=== PATIENT | male | born 1990 | race African-American/Black ===

== ENCOUNTER 2019-06-28 16:48 | Observation (INO) ==
[2019-06-28] MEDS ORDERED: NS 1,000 ML IV ONE ×2 (16:57→19:54)
[2019-06-28] MEDS ORDERED: ZOFRAN IV ONE (16:57)
--- NOTE | 2019-06-28 17:30 | PROVIDER DOCUMENTATION ---
This chart was entered by Tiffany Jacques Scribe, acting as scribe for Lori Huang CRNP. HPI-General Adult - General Chief Complaint: N/V/D Stated Complaint: N/V/D Time Seen by Provider: 06/28/19 16:51 Source: patient Allergies/Adverse Reactions: Patient Allergies Allergy/AdvReac Type Severity Reaction Status Date / Time No Known Allergies Allergy Verified 04/19/18 09:03 Home Medications: Home Medication List Medication Instructions Recorded Confirmed Last Taken Type Glipizide [Glipizide Xl] 2.5 mg PO BID 04/19/18 06/28/19 06/28/19 History Sitagliptin Phos/Metformin HCl 1 tab PO BID 06/28/19 06/28/19 06/27/19 History [Janumet 50-1,000 mg Tablet] - History of Present Illness -Gen Adult Nature of Presenting Problems: 29 y/o male presents to ED with N/V/D onset at 0600 this morning. Pt reports he has type II diabetes. Pt is alert and oriented. Location of Pain/Injury: reports: none Pain Radiation: reports: no radiation Quality of Pain: reports: none Severity: reports: mild Onset/Duration: reports: this morning Timing: reports: still present Context/Activities at Onset: reports: none Modifying Factors: improves with: nothing Associated Symptoms: reports: diarrhea, nausea, vomiting Similar Symptoms Previously?: No Recently seen or treated by another doctor?: No Review of Systems - Adult - REVIEW OF SYSTEMS - ADULT Constitutional: denies: chills, fever Eyes: reports: no symptoms reported Ears, Nose, Mouth & Throat: reports: no symptoms reported Cardiovascular: reports: no symptoms reported Respiratory: reports: no symptoms reported Gastrointestinal: reports: diarrhea, nausea, vomiting. denies: abdominal pain Genitourinary: reports: no symptoms reported Musculoskeletal: reports: no symptoms reported Integumentary: reports: no symptoms reported Neurological: reports: no symptoms reported Psychiatric: reports: no symptoms reported Endocrine: reports: no symptoms reported Hematologic/Lymphatic: reports: no symptoms reported Allergic/Immunologic: reports: no symptoms reported All Other Systems: Reviewed and Negative Past History - Adult - PAST MEDICAL HISTORY-ADULT Review of Records: reports: Old Records Reviewed, Nursing Assessment Review, Medications Reviewed Major Childhood Illnesses: reports: denies history Cardiovascular: reports: denies history Respiratory: reports: denies history Gastrointestinal: reports: denies history Obstetrical/Gynecological: reports: denies history Genitourinary: reports: denies history Musculoskeletal: reports: denies history Neurological: reports: denies history Endocrine/Immune: reports: Diabetes Diabetes Type: Type 2 Other Conditions: reports: denies history - PRIOR SURGERIES/PROCEDURES Surgical/Procedure History: reports: hernia repair - PRIOR HOSPITALIZATIONS Prior Hospitalizations: reports: none - IMMUNIZATION STATUS Childhood Immunizations: See Nurse Assessment Flu Vaccine: See Nurse Assessment - FAMILY HISTORY Family History: reviewed, not pertinent - SOCIAL HISTORY Smoking: non-smoker Substance Use: marijuana Alcohol Use Frequency: never Living Situation: family Physical Exam-General - PHYSICAL EXAM-ADULT Initial Vital Signs Reviewed: Yes - CONSTITUTIONAL General Appearance: appears well, alert, no apparent distress - EYES Eyes: PERRL/EOMI, pink conjunctivae - HEAD, EARS, NOSE, MOUTH & THROAT HENMT: normocephalic/atraumatic, moist mucous membranes, normal ENT inspection - NECK Neck: non-tender, full range of motion - RESPIRATORY Respiratory: chest non-tender, lungs clear, normal breath sounds - CARDIOVASCULAR Cardiovascular: normal peripheral pulses, regular rate, rhythm - GASTROINTESTINAL (ABDOMEN) Abdominal Exam: normal bowel sounds, non tender, soft - MUSCULOSKELETAL Back Exam: normal inspection, no CVA tenderness, no vertebral tenderness Extremity: normal range of motion, non-tender - SKIN Integumentary: normal color, warm/dry - NEUROLOGIC Neurologic: grossly normal - PSYCHIATRIC Psych/Mental Status: normal mood/affect, normal thought content, normal thought process, oriented x 3 Progress - PLAN OF CARE/RESULTS Progress/Plan/Lab Results: Vital Signs - 8 hr 06/28/19 16:51 Temperature 99.0 F Pulse Rate 120 H Respiratory Rate 18 Blood Pressure 109/64 O2 Sat by Pulse Oximetry 96 Laboratory Results - last 24 hr 06/28/19 16:57 POC Glucose 155 H Orders Category Date Time Status Saline Loc NOW Care 06/28/19 16:57 Active FLAT/UPRIGHT ABD/1 VIEW CHEST [RAD] Stat Exams 06/28/19 16:57 Ordered ACETONE SERUM [CHEM] Stat Lab 06/28/19 16:57 Uncollected CBC WITH ELECTRONIC DIFF [HEME] Stat Lab 06/28/19 16:57 Uncollected COMPREHENSIVE METABOLIC PANEL [CHEM] Stat Lab 06/28/19 16:57 Uncollected LIPASE [CHEM] Stat Lab 06/28/19 16:[address] W/POSS RFLX CULT [URINALYSIS] Stat Lab 06/28/19 16:57 Uncollected 0.9% Sodium Chloride Inj [Ns] 1,000 ml Med 06/28/19 16:57 Active IV 999 mls/hr Ondansetron [Zofran] Med 06/28/19 16:57 Discontinued 4 mg IV NOW ONE Laboratory Tests 06/28/19 06/28/19 06/28/19 16:57 17:30 17:30 WBC 9.82 RBC 5.08 Hgb 14.3 Hct 44.0 MCV 86.6 MCH 28.1 MCHC 32.5 L RDW Std Deviation 13.4 Plt Count 229 MPV 10.8 H Immature Gran % (Auto) 0.5 Neut % (Auto) 74.3 Lymph % (Auto) 16.5 L [place] % (Auto) 8.6 Eos % (Auto) 0.0 Baso % (Auto) 0.1 Immature Gran # (Auto) 0.05 H Neut # (Auto) 7.30 H Lymph # (Auto) 1.62 [place] # (Auto) 0.84 H Eos # (Auto) 0.00 Baso # (Auto) 0.01 Specimen Type Sample Site pH pCO2 pO2 HCO3 Base Excess Oxyhemoglobin ABG O2 Sat (Calculated) ABG O2 Saturation ABG Carboxyhemoglobin ABG Methemoglobin Sal Test A-a O2 Difference Total Hemoglobin Lactate Blood Gas Modality FiO2 % Sodium 138 Potassium 3.8 Chloride 106 Carbon Dioxide 20 L Anion Gap 12 BUN 13 Creatinine 1.2 Estimated GFR/1.73 m2 > 60 BUN/Creatinine Ratio 11 Glucose 152 H POC Glucose 155 H Calculated Osmolality 279 Calcium 8.9 Total Bilirubin 0.60 AST 45 H ALT 52 H Alkaline Phosphatase 61 Total Protein 6.7 Albumin 3.9 Globulin 3.0 Albumin/Globulin Ratio 1.0 Lipase 21 Urine Source Urine Color Urine Clarity Urine pH Ur Specific [place] Urine Protein Urine Ketones Urine Blood Urine Nitrite Urine Bilirubin Urine Urobilinogen Urine Microscopic RBC Urine WBC Ur Epithelial Cells Urine Crystals Urine Bacteria Urine Casts Urine Yeast Urine Glucose Acetone Level SMALL A 06/28/19 06/28/19 17:38 18:28 WBC RBC Hgb Hct MCV MCH MCHC RDW Std Deviation Plt Count MPV Immature Gran % (Auto) Neut % (Auto) Lymph % (Auto) [place] % (Auto) Eos % (Auto) Baso % (Auto) Immature Gran # (Auto) Neut # (Auto) Lymph # (Auto) [place] # (Auto) Eos # (Auto) Baso # (Auto) Specimen Type ARTERIAL Sample Site L RADIAL pH 7.41 pCO2 35 pO2 66 HCO3 23.4 Base Excess -1.8 Oxyhemoglobin 92.6 L ABG O2 Sat (Calculated) 18.7 ABG O2 Saturation 96.4 ABG Carboxyhemoglobin 2.60 H ABG Methemoglobin 1.3 Sal Test YES A-a O2 Difference 40.0 Total Hemoglobin 14.4 Lactate 0.80 Blood Gas Modality ROOM AIR FiO2 % 21.0 Sodium Potassium Chloride Carbon Dioxide Anion Gap BUN Creatinine Estimated GFR/1.73 m2 BUN/Creatinine Ratio Glucose POC Glucose Calculated Osmolality Calcium Total Bilirubin AST ALT Alkaline Phosphatase Total Protein Albumin Globulin Albumin/Globulin Ratio Lipase Urine Source CLEAN CATCH Urine Color YELLOW Urine Clarity CLEAR Urine pH 5.0 Ur Specific [place] 1.015 Urine Protein NEGATIVE Urine Ketones 3+(Large) A Urine Blood NEGATIVE Urine Nitrite NEGATIVE Urine Bilirubin NEGATIVE Urine Urobilinogen NORMAL Urine Microscopic RBC <10 Urine WBC NEGATIVE Ur Epithelial Cells <10 Urine Crystals URIC ACID PRESENT Urine Bacteria 1+ Urine Casts NONE SEEN Urine Yeast NONE SEEN Urine Glucose NEGATIVE Acetone Level Discussed results and plan of care with patient. Patient agrees with plan and verbalizes understanding. Result Diagrams: 06/28/19 17:30 06/28/19 17:30 - XRAY 1 XRAY Study: Abdomen ([facility] - [address] [facility] [address] [address] [facility] - [address] [place] [address] Department of Imaging Patient: MICHELLE ACEVEDOADM Date: 06/28/19MR#: [id number] : 1990ADM Status: REG ERAt#: [id number] Age/Sex: 29/MRoom/Bed: Loc: P.ED Ordering Physician: Lori Huang Family Physician: Jason Brito MD Reason for Procedure: abd pain Signed EXAM: FLAT/UPRIGHT ABD/1 VIEW CHEST HISTORY: abd pain TECHNIQUE: Flat and upright with chest, four views COMPARISON: 12/18/2017 FINDINGS: The lungs are well expanded. No cardiomegaly. No pneumonia. There are calcified right hilar mediastinal nodes. No free air beneath the diaphragm. No bowel obstruction. No organomegaly. There are scattered pelvic phleboliths. No foreign body. IMPRESSION: No acute abnormality. Electronically signed by Aleks Johnson 06/28/2019 6:06 PM 06/28/191805 Interpreting Physician: Aleks Johnson MD Dictated Date/Time: 06/28/191804 cc: Lori Huang; Jason Brito MD) Impression: See EMR Report XRAY Interpretation: See note - CONSULTS/PCP/HOSPITALIST Notification #1 *Consult/PCP/Hospitalist*: Dr. Olsen Time Discussed: 19:51 Reason/Comments: Admission Consult Disposition: Admit (admit for obs and do acucheck q4h, NS @150/hr, hu malog sliding scale, A1c, and lipids in the am.) Departure - Departure Date of Disposition Decision: 06/28/19 Time of Disposition Decision: 19:01 DIAGNOSIS: Hyperglycemia Nausea & vomiting Qualifiers: Vomiting type: unspecified Vomiting Intractability: non-intractable Qualified Code(s): R11.2 - Nausea with vomiting, unspecified Disposition: ADMITTED INPATIENT 09 Certified Medical Emergency: Emergent Condition: Stable Referrals and Follow-Ups: Jason Brito MD [Primary Care Provider] - - Critical Care Note This patient required my direct & personal management of CC.: No Attestation - Physician/ LINDA Attestation Patient care was provided by Advanced Practice Provider:: Yes Advanced Practice Provider:: Lori Huang Advanced Practice Provider documentation review:: The Mid-level provider documentation, treatment plan and medical decision making was reviewed by the physician who agrees with all treatment and medical decision making by the [facility]. The physician spent face to face time with patient:: No Advanced Practice Provider documentation review:: Supervising physician onsite and consulted in the evaluation and care of this patient. The physician did not have a face to face encounter with the patient. This chart was documented by the indicated scribe, (Tiffany Jacques, Sarita) and accurately reflects the services I performed and decisions made by me, Lori Huang CRNP, as attested by the provider's signature.
[2019-06-28 17:48] LABS: BASO# 0.01 X1000 (0.0-0.2); BASO% 0.1 % (0.0-0.8); HEMOGLOBIN 14.3 g/dL (14.0-18.0); IMM GRAN# 0.05 X1000 (0.0-0.04); IMM GRAN% 0.5 % (0.0-0.5); LYMPH# 1.62 X1000 (1.2-3.4); LYMPH% 16.5 % (20.5-51.1); MCH 28.1 PG (27-31); MCHC 32.5 g/dL (33-37); MCV 86.6 FL (81-99); MONO# 0.84 X1000 (0.11-0.59); MONO% 8.6 % (1.7-9.3); MPV 10.8 FL (7.4-10.4); NEUT% 74.3 % (42.2-75.2); PLT 229 X1000 (130-400); RBC 5.08 XMIL (4.7-6.1); RDW 13.4 % (11.5-14.5); WBC 9.82 X1000 (4.8-10.8)
[2019-06-28 17:50] LABS: BILIRUBIN URINE NEGATIVE (NEGATIVE); BLOOD URINE NEGATIVE (NEGATIVE); CLARITY CLEAR (CLEAR); COLOR YELLOW; GLUCOSE URINE NEGATIVE (NEGATIVE); KETONE URINE 3+(Large) mg/dL (NEGATIVE); LEUKOCYTES URINE NEGATIVE (NEGATIVE); NITRITE URINE NEGATIVE (NEGATIVE); PROTEIN URINE NEGATIVE (NEGATIVE); SP GRAVITY URINE 1.015; UROBILINOGEN URINE NORMAL
--- NOTE | 2019-06-28 18:08 | Diag Imaging Result Doc PS360 ---
EXAM: FLAT/UPRIGHT ABD/1 VIEW CHEST HISTORY: abd pain TECHNIQUE: Flat and upright with chest, four views COMPARISON: 12/18/2017 FINDINGS: The lungs are well expanded. No cardiomegaly. No pneumonia. There are calcified right hilar mediastinal nodes. No free air beneath the diaphragm. No bowel obstruction. No organomegaly. There are scattered pelvic phleboliths. No foreign body. IMPRESSION: No acute abnormality. Electronically signed by Aleks Johnson 06/28/2019 6:06 PM
[2019-06-28 18:10] LABS: URINE BACTERIA 1+ /HFP; URINE CAST NONE SEEN /LPF; URINE EPITHELIAL CELLS <10 /HPF (<10); URINE RBC <10 /HPF (<10); URINE YEAST NONE SEEN /HPF
[2019-06-28 18:11] LABS: URINE CRYSTAL URIC ACID PRESENT /HPF; URINE SOURCE CLEAN CATCH
[2019-06-28 18:11] LABS: AGAP 12; ALBUMIN 3.9 g/dL (3.5-5.0); ALKALINE PHOSPHATASE 61 U/L (32-122); BUN 13 mg/dL (8-22); CALCIUM 8.9 mg/dL (8.8-10.2); CHLORIDE 106 mmol/L (98-107); COSMO 279; CREATININE 1.2 mg/dL (0.7-1.2); ESTIMATED GFR > 60; GLUCOSE 152 mg/dL (70-104); GOT 45 U/L (10-34); GPT 52 U/L (10-44); LIPASE 21 U/L (13-60); POTASSIUM 3.8 mmol/L (3.5-5.1); SODIUM 138 mmol/L (136-145); TCO2 20 mmol/L (25-35); TOTAL PROTEIN 6.7 g/dL (6.3-8.3)
[2019-06-28 18:23] LABS: ACETONE SERUM SMALL (NEGATIVE)
[2019-06-28 18:43] LABS: BE -1.8 mmoll (-3.0-3.0); BLOOD TYPE ARTERIAL; HCO3-(ACT) 23.4 mmoll (20.0-26.0); METHB 1.3 % (0.0-1.5); O2(CT) 18.7 mL/dL (15.0-23.0); O2HB 92.6 % (95.0-99.0); PCO2(98.6) 35 mmHg (35-45); PO2(98.6) 66 mmHg (60-100); SAMPLE BLOOD; SAO2 96.4 % (95.0-100.0); THB 14.4 g/dL (11.5-17.4); pH(98.6) 7.41 (7.35-7.45)
[2019-06-28 18:47] LABS: ALLEN TEST YES; MODALITY ROOM AIR
[2019-06-28] MEDS ORDERED: ZOFRAN IV PRN (19:54)
[2019-06-28 20:16] LABS: HEMOGLOBIN A1C 6.7 % (4.8-6.0)
[2019-06-29] MEDS: HUMALOG (PARKWAY) SUBQ SCH ×3 (01:31→13:01)
[2019-06-29 06:58] LABS: CHOLESTEROL 45 mg/dL (0-200); HDL 18 mg/dL (35-55); LDL 16 mg/dL; TRIGLYCERIDES 56 mg/dL (39-160); VLDL 11 mg/dL
[2019-06-29 07:56] VITALS: BP 125/87
[2019-06-29 08:40] LABS: BASO# 0.02 X1000 (0.0-0.2); BASO% 0.3 % (0.0-0.8); EOS# 0.02 X1000 (0.0-0.7); EOS% 0.3 % (0.0-10.0); HEMATOCRIT 42.9 % (42.0-52.0); HEMOGLOBIN 13.5 g/dL (14.0-18.0); IMM GRAN# 0.02 X1000 (0.0-0.04); IMM GRAN% 0.3 % (0.0-0.5); LYMPH# 3.45 X1000 (1.2-3.4); LYMPH% 43.6 % (20.5-51.1); MCH 27.9 PG (27-31); MCHC 31.5 g/dL (33-37); MCV 88.6 FL (81-99); MONO# 1.12 X1000 (0.11-0.59); MONO% 14.1 % (1.7-9.3); MPV 11.3 FL (7.4-10.4); NEUT# 3.29 X1000 (1.4-6.5); NEUT% 41.4 % (42.2-75.2); PLT 211 X1000 (130-400); RBC 4.84 XMIL (4.7-6.1); RDW 13.6 % (11.5-14.5); WBC 7.92 X1000 (4.8-10.8)
[2019-06-29] MEDS ORDERED: GLUCOPHAGE PO SCH (09:00)
[2019-06-29] MEDS ORDERED: JANUVIA PO SCH (09:00)
[2019-06-29] MEDS ORDERED: GLUCOTROL XL PO SCH (09:00)
[2019-06-29 09:10] LABS: AGAP 11; ALBUMIN 3.4 g/dL (3.5-5.0); ALKALINE PHOSPHATASE 56 U/L (32-122); BUN 9 mg/dL (8-22); CALCIUM 8.5 mg/dL (8.8-10.2); CHLORIDE 109 mmol/L (98-107); COSMO 283; CREATININE 1.2 mg/dL (0.7-1.2); ESTIMATED GFR > 60; GLUCOSE 145 mg/dL (70-104); GOT 42 U/L (10-34); GPT 47 U/L (10-44); MAGNESIUM 1.7 mg/dL (1.5-2.7); POTASSIUM 3.9 mmol/L (3.5-5.1); SODIUM 141 mmol/L (136-145); TCO2 21 mmol/L (25-35); TOTAL PROTEIN 6.1 g/dL (6.3-8.3)
[2019-06-29 09:18] LABS: FREE T4 1.37 ng/dL (0.93-1.70); TSH 0.78 uIUmL (0.27-4.20)
--- NOTE | 2019-06-29 11:10 | HISTORY AND PHYSICAL ---
PRIMARY CARE PROVIDER: Jason Brito MD CHIEF COMPLAINT: Nausea, vomiting, diarrhea. HISTORY OF PRESENT ILLNESS: Mr. Jose Booth is a 29-year-old male with a medical history of diabetes mellitus type 2, hypertension, hyperlipidemia, vitamin D deficiency, seasonal allergies, who is here with complaints of nausea, vomiting, diarrhea that started around 11 o'clock yesterday. Stools are dark, but negative for decrease in hemoglobin and hematocrit. His vital signs remained stable. The highest his blood glucose level got was in the 150s, but he was positive for ketones in the urine and acetone in the blood, so he was admitted overnight for IV fluid hydration to decreased risk for any further increase in his blood glucose levels. Currently, he is stable, eating food, tolerating that well and will be discharged back home. He does also have complaints of having 1 month's worth of erectile dysfunction and is requesting for assistance in possible pharmacological treatment. PAST MEDICAL HISTORY: 1. Diabetes mellitus type 2. 2. Hypertension. 3. Hyperlipidemia. 4. Vitamin D deficiency. 5. Seasonal allergies. 6. New erectile dysfunction. SURGICAL HISTORY: 1. Right inguinal repair. 2. Umbilical hernia repair. SOCIAL HISTORY: Denies tobacco and alcohol. He smokes marijuana daily. He works at [employer]. He is and has 3 young children. FAMILY HISTORY: Mother's side of the family with diabetes and Alzheimer's. Father's side of the family with no medical conditions known. MEDICATION ALLERGIES: None. HOME MEDICATIONS: 1. Lipitor 40 mg p.o. nightly. 2. Cozaar 25 mg p.o. daily. 3. Glipizide 2.5 mg p.o. twice daily. 4. Sitagliptin/metformin 1 tablet p.o. twice daily 5. Singular 10 mg p.o. daily. 6. Vitamin D2 every 7 days, 50,000 units. REVIEW OF SYSTEMS: Fourteen-point review of systems are complete and all were negative for those mentioned above HPI. PHYSICAL EXAMINATION: VITAL SIGNS: Temperature 98.1 degrees, heart rate 103, respiratory rate 16, blood pressure 125/87, O2 saturation 99% on room air. GENERAL: Mr. Jose Booth is a 29-year-old male. He is in no acute distress. He is able to answer questions appropriately. HEENT: Atraumatic, normocephalic. Pupils equal, round, reactive to light. Extraocular movements intact. Mucous membranes are moist. NECK: Trachea midline. CARDIOVASCULAR: S1, S2. Regular rate and rhythm. No rubs, gallops, or murmurs. No lower extremity edema. +2 dorsalis and radial pulses. Negative JVD or carotid bruits. PULMONARY: Clear to auscultate, bilateral breath sounds. No accessory muscle use or work of breathing noted. GI: Soft, nontender, nondistended. Positive bowel sounds x4. EXTREMITIES: Moves all extremities equally. Full range of motion. NEUROLOGIC: Alert and oriented x3. Follows commands. Sensory is intact. SKIN: Warm, dry, intact. LABORATORY DATA: White blood cells 7000, hemoglobin 13, hematocrit 42, platelet count 211,000. Sodium 141, potassium 3.9, BUN 9, creatinine is 1.2, glucose 145. Hemoglobin A1c is 6.7. Calcium 8.5, magnesium 1.7, bilirubin 0.60, AST 42, ALT 47, albumin 3.4. Triglycerides 56, total cholesterol 45, HDL 18. Lipase 21. TSH 0.78, free T4 is 1.37. Urinalysis has uric acid present in the urine, 1+ bacteria, 3+ ketones. He also had small acetone, a little low bicarb level of 21. IMAGING: Abdominal x-ray, no acute findings. ASSESSMENT AND PLAN: 1. Viral gastroenteritis. Now has since resolved. Still with some stools, but nausea is completely resolved, and he is hungry, so we will feed him, and he has already been hydrated. He is stable at this time. 2. Diabetes mellitus type 2. Pattern blood glucoses, sliding scale insulin. Blood glucose has never gotten over 150s. 3. Hyperlipidemia. He will go back home on his atorvastatin. 4. Hypertension. Remains stable. 5. Seasonal allergies. Again, he will be started on his Singulair to go back home. 6. Erectile dysfunction symptoms x1 month. He will be discharged with a prescription of p.gary [place]. 7. Deep venous thrombosis prophylaxis. He is very active and will be discharged so will not need any prophylaxis at this time. 8. Marijuana abuse. He smokes it daily. Cessation for at least 6 minutes discussed with the patient. No wishes to stop at this time. Dictated by KIKE Hartmann for Kenney Rodarte MD Addendum: patient seen and examined by myself. Agree with KIKE note. It reflects my assessment and plan. Patient is being admitted to hospital for viral gastroenteritis that seems to be resolved at the time of my examination. Will discharge this patient and will also prescribe Cialis for erectile disfunction. cc: KIKE Hartmann MD [facility]
--- NOTE | 2019-06-29 14:05 | DISCHARGE SUMMARY ---
ADMISSION DATE: 06/28/2019 DISCHARGE DATE: 06/29/2019 ADMISSION DIAGNOSES: 1. Nausea, vomiting, diarrhea with dehydration, resolved. 2. Diabetes mellitus type 2. Pattern blood glucoses that were stable. 3. Hyperlipidemia, stable. 4. Hypertension, stable. 5. Erectile dysfunction. Will have a p.r.n. Cialis prescription on discharge. 6. Seasonal allergies. DISCHARGE DIAGNOSES: 1. Nausea, vomiting, diarrhea with dehydration, resolved. 2. Diabetes mellitus type 2. Pattern blood glucoses that were stable. 3. Hyperlipidemia, stable. 4. Hypertension, stable. 5. Erectile dysfunction. Will have a p.r.n. Cialis prescription on discharge. 6. Seasonal allergies. CONSULTATIONS: None. SURGERIES AND PROCEDURES: None. HOSPITAL COURSE: Mr. Jose Booth is a 29-year-old male who came in with complaints of nausea, vomiting, and diarrhea since 11:00 yesterday, but all this essentially resolved. He is still having some loose stools, but that has slowed down as well. He is having no abdominal pain. There is no other complaints other than he has had some complaints of erectile dysfunction for a month. Everything is stable, so he is going to be discharged home. He will be treated with Cialis as needed for the erectile dysfunction complaints, and he will need to follow up his primary for this. DISCHARGE VITAL SIGNS: Temperature 98.1 degrees, heart rate 103, respiratory rate 16, blood pressure 125/87, O2 saturation 99% on room air. DISCHARGE LABORATORY DATA: White blood cells 7000, hemoglobin 13, hematocrit 42, platelet count 211,000. Sodium 141, potassium 3.9, BUN 9, creatinine is 1.2, glucose 145, calcium 8.5, hemoglobin A1c is 6.7, magnesium 1.7, bilirubin 0.60, AST 42, ALT 47, albumin 3.4, triglycerides 556, total cholesterol 45, TSH 0.78, free T4 is 1.37. PERTINENT IMAGING: Abdominal x-ray negative. DISCHARGE MEDICATIONS: 1. Lipitor 40 mg p.o. nightly. 2. Cozaar 25 mg p.o. daily. 3. Glipizide 2.5 mg p.o. twice daily. 4. Sitagliptin/metformin 1 tablet p.o. twice daily. 5. Singulair 10 mg p.o. daily. 6. Vitamin D2 at 50,000 units every 7 days. 7. He will have a new prescription for Cialis. DISCHARGE DIET: Diabetic. DISCHARGE ACTIVITY: As tolerated. DISCHARGE INSTRUCTIONS: Take medications as prescribed on discharge. DISCHARGE PHYSICIAN: Follow-up with PCP DISCHARGE DISPOSITION: Home. Dictated by KIKE Hartmann for Kenney Rodarte MD Addendum: Patient seen and examined by myself. Agree with KIKE note. It reflects my assessment and plan. Patient is being discharged from hospital in stable condition and will be seen by PCP in a week. cc: KIKE Hartmann MD [facility]
== END 2019-06-29 14:49 | disposition home or self-care (01) ==
LOC: P.ED 16:48 → P.MEDSURG 16:48
PROVIDERS: ATTEND Internal Medicine